=== PATIENT | female | born 1990 | race Two or more races ===

== ENCOUNTER 2018-12-05 04:02 | Outpatient (CLI) | payer OTHER ==
[2018-12-05] MEDS ORDERED: PRENATAL TABLE1 EAC1 PO (04:25)
== END 2018-12-05 09:41 | disposition home or self-care (01) ==
LOC: EDBD 04:02 → OBS/DEL 04:02
DX: O47.1 False labor at or after 37 completed weeks of gestation (principal); Z34.03 Encounter for supervision of normal first pregnancy, third trimester

== ENCOUNTER 2018-12-06 03:21 | Inpatient (IN) | payer OTHER ==
[~2018-12-06] VITALS: Ht 162.6 cm; Wt 77.1 kg
[~2018-12-06 03:21] MED LIST: PRENATAL TABLE1 EAC1 PO
== END 2018-12-08 14:16 | DRG 807 ==
LOC: LDR 03:21 → OB/GYN 03:21
PROVIDERS: ADMIT Obstetrics & Gynecology
PROC: 10E0XZZ Delivery of Products of Conception, External Approach (ICD-10-PCS; principal; 2018-12-06)
PROC: 4A1HXCZ Monitoring of Products of Conception, Cardiac Rate, External Approach (ICD-10-PCS; 2018-12-06)
PROC: 0HQ9XZZ Repair Perineum Skin, External Approach (ICD-10-PCS; 2018-12-06)
DX: O70.0 First degree perineal laceration during delivery (principal); Z37.0 Single live birth; Z3A.38 38 weeks gestation of pregnancy

== ENCOUNTER 2022-03-21 09:11 | Outpatient (CLI) | payer OTHER | END 2022-03-21 10:40 | disposition home or self-care (01) | LOC: PRENATAL 09:11 | PROVIDERS: ATTEND Obstetrics & Gynecology Maternal & Fetal Medicine | DX: O36.80X0 Pregnancy with inconclusive fetal viability, not applicable or unspecified (principal); Z36.0 Encounter for antenatal screening for chromosomal anomalies; Z3A.13 13 weeks gestation of pregnancy ==

== ENCOUNTER 2022-06-09 14:38 | Outpatient (CLI) | payer OTHER | END 2022-06-09 15:38 | disposition home or self-care (01) | LOC: PRENATAL 14:38 | PROVIDERS: ATTEND Obstetrics & Gynecology Maternal & Fetal Medicine | DX: O35.0XX0 Maternal care for (suspected) central nervous system malformation in fetus, not applicable or unspecified (principal); O35.3XX0 Maternal care for (suspected) damage to fetus from viral disease in mother, not applicable or unspecified; Z3A.25 25 weeks gestation of pregnancy ==

== ENCOUNTER 2022-08-07 13:45 | Inpatient (IN) | payer OTHER ==
[~2022-08-07] VITALS: Ht 160 cm; Wt 1.8 kg
[2022-08-18] MEDS ORDERED: IBUPROFEN800 MG PO (08:02)
== END 2022-08-18 13:19 | disposition home or self-care (01) | DRG 786 ==
LOC: LDR 13:45 → O/R 08-15 08:27 → OB/GYN 08-15 14:27
PROVIDERS: ADMIT Specialist; ATTEND Specialist
PROC: BY4FZZZ Ultrasonography of Third Trimester, Single Fetus (ICD-10-PCS; 2022-08-07)
PROC: 4A1HXCZ Monitoring of Products of Conception, Cardiac Rate, External Approach (ICD-10-PCS; 2022-08-07)
PROC: 10D00Z1 Extraction of Products of Conception, Low, Open Approach (ICD-10-PCS; principal; 2022-08-15 07:00)
DX: O32.2XX0 Maternal care for transverse and oblique lie, not applicable or unspecified (principal); O60.14X0 Preterm labor third trimester with preterm delivery third trimester, not applicable or unspecified; Z3A.33 33 weeks gestation of pregnancy; Z37.0 Single live birth; Z20.822 Contact with and (suspected) exposure to COVID-19